=== PATIENT | male | born 1985 | race African-American/Black ===

== ENCOUNTER 2017-10-17 20:10 | Inpatient (IN) | payer OTHER ==
[~2017-10-17] VITALS: Ht 172.7 cm; Wt 99.8 kg
--- NOTE | ~2017-10-17 | EKG ---
[place] [address] [facility] [place] [address] ELECTROCARDIOGRAM REPORT Name: JUANKELLY J Room #: 204-P ADM IN M.R.#: [id number] Admission: 10/17/17 Attend Phys: Kelly Multani MD Discharge: Date of : 85 Report #: [id number] THIS REPORT FOR: //name// [facility] ED Test Date: 2017-10-17 Test Time: 20:40:48 Pat Name: KELLY MARTINEZ Department: Room: 204 Gender: M Diet Kitchen Cook: Justin TOLLIVER : 1985 Requested By: Singh Bustillo Order Number: [id number] MD: Hernán Harrington Measurements Intervals Minter Rate: 113 P: 66 MS: 152 QRS: 42 QRSD: 94 T: 42 QT: 360 QTc: 494 Interpretive Statements Sinus tachycardia Left atrial enlargement Prolonged QT interval Nonspecific ST segment abnormality No previous ECG available for comparison Electronically Signed On 10-18-2017 8:43:35 REALTIME REPORTER by Hernán Harrington [email or web address] <ELECTRONICALLY SIGNED> By: Hernán Harrington MD, [facility] 10/18/17 [phone] 39 Hernán Harrington MD, FACC /EPI
--- NOTE | ~2017-10-17 | 2DMMODE ---
[facility] [address] [place] [address] 2 D/M-MODE ECHOCARDIOGRAM Name: KELLY MARTINEZ Room #: 204-P [facility] IN ..#: [id number] Admission: 10/17/17 Attend Phys: Kelly Multani MD Discharge: Date of : 85 Date of Service: 10/18/17 1302 Report #: [id number] THIS REPORT FOR: //name// APPROVED REPORT Study performed: 10/18/2017 11:16:10 EXAM: Comprehensive 2D, Doppler, and color-flow Echocardiogram Patient Location: Bedside Room #: 204 Status: routine BSA: 2.13 HR: 110 bpm BP: 173/122 mmHg Other Information Study Quality: Good Indications Dyspnea Cardiomegaly Hypertension/HDD 2D Dimensions RVDd: 31.88 mm LVEF(%): 44.44 (>50%) IVSd: 10.34 (7-11mm) LVOT Diam: 23.95 (18-24mm) LVDd: 59.93 mm PWd: 9.75 (7-11mm) Ascending Ao: 28.05 (22-36mm) LVDs: 46.48 (25-40mm) Aortic Root: 31.17 mm IVC: 7.00 mm Jeffries's LVEF: 44.44 % Volumes Left Atrial Volume (Systole) Single Plane 4CH: 69.36 mL Single Plane 2CH: 56.75 mL LA ESV Index: 32.00 mL/m2 Aortic Valve AoV Peak Nando.: 1.83 m/s AO Peak Gr.: 13.45 mmHg LVOT Max P.77 mmHg LVOT Max V: 1.39 m/s KRYSTEN Vmax: 3.42 cm2 Pulmonary Valve PV Peak Nando.: 1.09 m/s PV Peak Gr.: 4.77 mmHg [facility] [place] [address] 2 D/M-MODE ECHOCARDIOGRAM Name: KELLY MARTINEZ Room #: 204-P [facility] IN .R.#: [id number] Admission: 10/17/17 Attend Phys: Kelly Multani MD Discharge: Date of : 85 Date of Service: 10/18/17 1302 Report #: [id number] Tricuspid Valve TR Peak Nando.: 3.48 m/s TR Peak Gr.: 48.37 mmHg PA Pressure: 53.00 mmHg Left Ventricle Left ventricle is dilated. There is normal left ventricular wall thickness. Left ventricular ejection fraction is at lower limits of normal. LVEF is 45-50%. This study is not technically sufficient to allow evaluation of the LV diastolic function. Right Ventricle The right ventricle is normal size. The right ventricular systolic function is normal. Atria The left atrium size is normal. The right atrium size is normal. Aortic Valve The aortic valve is normal in structure. No aortic regurgitation is present. There is no aortic valvular stenosis. Mitral Valve The mitral valve is normal in structure. Trace to mild mitral regurgitation. No evidence of mitral valve stenosis. Tricuspid Valve The tricuspid valve is normal in structure. There is trace to mild tricuspid regurgitation. Estimated PAP 53 mmHg. There is moderate pulmonary hypertension. Pulmonic Valve The pulmonary valve is normal in structure. Trace to mild pulmonic regurgitation. Great Vessels The aortic root is normal in size. IVC is normal in size and collapses >50% with inspiration. Pericardium There is no pericardial effusion. <Conclusion> Left ventricular ejection fraction is at lower limits of normal. [facility] [address] [place] [address] 2 D/M-MODE ECHOCARDIOGRAM Name: JUANKELLY J Room #: 204-P [facility] IN ..#: [id number] Admission: 10/17/17 Attend Phys: Kelly Multani MD Discharge: Date of : 85 Date of Service: 10/18/17 1302 Report #: [id number] LVEF 45-50%. Mild LV dilatation The aortic valve is normal in structure. No aortic regurgitation or stenosis The mitral valve is normal in structure. Trace to mild mitral regurgitation. There is trace to mild tricuspid regurgitation. Estimated pulmonary artery pressure of 53 mmHg. There is no pericardial effusion. <ELECTRONICALLY SIGNED> By: Hernán Harrington MD, [facility] 10/18/17 1302 01 01 Hernán Harrington MD, [facility] /INF
--- NOTE | ~2017-10-17 | O ---
[facility] [place] [address] OPERATIVE REPORT Name: KELLY MARTINEZ Room #: 204-P [facility] IN .R.#: [id number] Admission: 10/17/17 Attend Phys: Kelly Multani MD Discharge: Date of : 85 Report #: [id number] THIS REPORT FOR: //name// CC: Kelly Multani [facility] physician/PCP PRIMARY PHYSICIAN: None. CLINICAL HISTORY: A 32-year-old male with bilateral ground-glass opacities and mediastinal adenopathy and history of hemoptysis. A diagnostic bronchoscopy was performed. POSTOPERATIVE DIAGNOSES: 1. Mild purulent secretions seen in both airways. 2. No evidence of endobronchial lesion. DESCRIPTION OF PROCEDURE: Following obtaining consent and risks and benefits being explained to the patient, which include infection, bleeding, pneumothorax, the procedure performed in the endoscopy suite. The patient received aerosolized lidocaine at 4% to the upper airways. He also received 2% lidocaine to the supraglottic area. Approximately 20 mL were used. Then, 1% lidocaine was then used below the vocal cords. He also received total of 6 mg of Versed and total of 100 mcg of fentanyl for sedation. In addition, the patient received 20 mg of hydralazine IV push for hypertension along with Vasotec 1.25 mg IV push. His blood pressure prior to procedure was approximately 180/100 mmHg systolic. Following sedation and control of the hypertension, the flexible fiberoptic bronchoscope was then introduced to the right naris with some difficulty. The patient appeared quite apprehensive and sensitive in the naris. Thus, the patient received additional sedation as mentioned above. Then we were able to advance the bronchoscope to the supraglottic area. The epiglottis was normal, vocal cords normal, trachea was normal, kamlesh was normal. The right mainstem bronchus, right upper lobe, right middle lobe and right lower lobe were grossly unremarkable other than mild purulent secretions seen in both right and left mainstem bronchus. The left main stem bronchus, left upper lobe and left lower lobe were grossly unremarkable other than mild purulent secretion seen. Bronchoalveolar lavage was performed at the approximate left lower lobe. (CT chest revealed bilateral including bibasilar infiltrate, bibasilar ground glass opacities). We used approximately four aliquots of 20 mL normal saline with adequate return in the sputum collection cup. [address] [address] OPERATIVE REPORT Name: KELLY MARTINEZ Room #: 204-P [facility] IN M.R.#: [id number] Admission: 10/17/17 Attend Phys: Kelly Multani MD Discharge: Date of : 85 Report #: [id number] Due to coughing, gagging and some degree of apprehension, the procedure was aborted. The bronchial lavage specimen will be sent for microbiology studies including cell count and cytology. Otherwise, the patient tolerated the procedure fairly well except for hypertension. His blood pressure did go up to as high as 180/100 mmHg systolic. It improved to 160/80 mmHg following the procedure. Saturation was within the normal range. COMMENT: In the event that the patient may need another bronchoscopy, the patient may benefit from heavier sedation with Anesthesia standby. <ELECTRONICALLY SIGNED> By: Triston Levy MD 10/19/17 1747 1723 1744 Triston Levy MD /nt
--- NOTE | ~2017-10-17 | HC ---
[facility] [place] [address] CONSULTATION Name: KELLY MARTINEZ Room #: 204-P [facility] IN M.R.#: [id number] Admission: 10/17/17 Attend Phys: Kelly Multani MD Discharge: Date of : 85 Report #: [id number] THIS REPORT FOR: //name// CC: Kelly Multani [facility] physician/PCP PRIMARY PHYSICIAN: None. REFERRAL PHYSICIAN: Kelly Multani MD REASON FOR REFERRAL: Hemoptysis and abnormal CT chest. HISTORY OF PRESENT ILLNESS: The patient is a 32-year-old -[place] male who presents to emergency room with dyspnea and hemoptysis. A pulmonary consultation was requested. The patient has been generally healthy except for hypertension since 2005. He was in his usual state of health until about a week ago, he developed upper respiratory tract infection. He has had a mild cough. Last Wednesday, his dyspnea and cough worsened. He states that he coughed up pinkish colored sputum that tastes like blood. For that reason, he presented to the emergency room. Otherwise, he denies any febrile illness, night sweats or chills, nausea, vomiting, diarrhea, hematemesis, hematochezia, or melena. He does smoke about a pack a day for the last 16 years. He has never been diagnosed with chronic lung disease. He denies any illicit drug use. In August, he was hospitalized at [facility] for respiratory illness. It was on 08/23/2017. Chest x-ray was performed at that time suggesting "swollen airways," otherwise he does not recall any other abnormalities. 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 PAST SURGICAL HISTORY: None. ALLERGIES: None. HOME MEDICATIONS: Amlodipine. FAMILY HISTORY: Mother . She has had heart disease. Father had diabetes, hypertension, and hyperlipidemia. SOCIAL HISTORY: He is single, he has 4 children, he is never , he has a fifth child on the way. [facility] [address] [place] [address] CONSULTATION Name: JUANKELLY J Room #: 204-P ADM IN [facility].#: [id number] Admission: 10/17/17 Attend Phys: Kelly Multani MD Discharge: Date of : 85 Report #: [id number] REVIEW OF SYSTEMS: As mentioned above, otherwise 10-point system review negative. PHYSICAL EXAMINATION: VITAL SIGNS: Temperature maximum is 100 degrees Fahrenheit, pulse is 120, respiratory rate is 20, blood pressure 150/105 mmHg, and saturation 97%. GENERAL: He is awake, alert, in no apparent distress. HEENT: Normocephalic, atraumatic. NECK: Supple without lymphadenopathy or thyromegaly. CHEST: Breath sounds are good with few scattered crackles in the bases. No wheezes. CARDIOVASCULAR: Normal S1, S2. There no murmurs or gallop. There is no JVD. There is no carotid bruit. Pulses are 2+/4+ bilaterally. ABDOMEN: Soft, nontender, no organomegaly or masses felt. GENITOURINARY: Deferred. RECTAL: Deferred. EXTREMITIES: There is no edema, cyanosis, or clubbing. LABORATORY DATA: Chest x-ray and chest CT reviewed. Chest CT shows patchy bilateral eueq-pe-dfurkzga ground glass opacity, moderate subcarinal, right hilar adenopathy, increase in bilateral septal markings also noted. D-dimer was elevated. Influenza A and B screen is negative. CT chest angiogram also showed no evidence of pulmonary embolus. Urine drug screen was positive for opiates. EKG shows left atrial enlargement, otherwise no acute ischemic changes. Electrolytes are grossly unremarkable except for potassium 3.5, creatinine is normal. Liver enzymes are normal. WBC 14,100, hemoglobin is 15.0, platelets are normal. No bandemia. Arterial blood gas revealed pH 7.47, pCO2 of 24, pO2 61 on 3 liters of O2. IMPRESSION: 1. Acute hypoxic respiratory failure in this 32-year-old -[place]ian male. CT chest shows bilateral moderate ground glass opacity, mediastinal and hilar adenopathy. He has a long history of hypertension. The patient complains of hemoptysis. Etiology suspect viral process resulting pneumonia and mediastinal adenopathy. Hemoptysis is somewhat unusual unless it is concomitant, acute systolic heart failure given his . CT abnormality in this young -E[place]ian male should also suggest possible granulomatous disease such as sarcoidosis. 2. Ground glass opacity, mediastinal adenopathy as mentioned above. 3. Hypertension. 4. Tobacco abuse. Lung cancer is felt to be less likely given his age. RECOMMENDATION: We will await echocardiogram. We will proceed with diagnostic [address] [address] CONSULTATION Name: KELLY MARTINEZ Room #: 204-P [facility] IN M.R.#: [id number] Admission: 10/17/17 Attend Phys: Kelly Multani MD Discharge: Date of : 85 Report #: [id number] bronchoscopy. For now, I would proceed with bronchial lavage involving the right middle and right lower lobe with infiltrate appears to be more significant. EBUS will be deferred at this time until infection has been ruled out. The patient may ultimately need EBUS if mediastinal adenopathy persist. We will also defer transbronchial biopsy at this time as concerns for possible infection and heart failure. Procalcitonin level is also recommended. I have discussed above the findings with the patient and rationale for proceeding with diagnostic bronchoscopy in the morning. Risks and benefits were discussed, which include infection, bleeding, and pneumothorax. Following discussion, he voices understanding, we will then proceed. Thank you for this consultation. <ELECTRONICALLY SIGNED> By: Triston Levy MD 10/18/17 1409 1217 1303 Triston Levy MD /nt
--- NOTE | ~2017-10-17 | CNG ---
[facility] [place] [address] CYTO-NONGYN REPORT PROCEDURE Name: KELLY TAMAYO Room #: 204-P ADM IN M.R.#: [id number] Admission: 10/17/17 Date of : 85 Discharge: Report #: [id number] Path Case #: [id number] CYTOPATHOLOGY REPORT COLLECTION DATE: 10/19/2017 RECEIVED DATE: 10/19/2017 SUBMITTING PHYS: Kelly Multani M.D. OTHER PHYS: Dr. Carson Levy CLINICAL HISTORY: Pneumonia SPECIMEN(S) RECEIVED: A.Bronchoalveolar lavage, LLL * * * * * * * * * * * * FINAL DIAGNOSIS: A. Bronchoalveolar lavage, LLL: - No malignant epithelial cells identified. Numerous pigmented alveolar macrophages, scattered bronchial epithelial cells and occasional acute and chronic inflammatory cells identified. PATHOLOGIST: Muna Cagle M.D. REPORT ELECTRONICALLY SIGNED BY: Muna Cagle M.D. DATE/TIME: 10/20/2017 11:32 * * * * * * * * * * * * GROSS PATHOLOGY: A. Bronchoalveolar lavage, LLL: The specimen is submitted unfixed, labeled "Kelly Tamayo". Received by the Cytology Department is five mL of cloudy pink tinted fluid. One ThinPrep slide was prepared. (mm 10.19.2017) ELECTRONIC IMAGING SYSTEM OPERATOR(S): MYRNA Yoo([facility] INITIAL CPT CODE(S): A; 81131 Professional services performed by [facility] at [facility] [address], [place] [address] Technical services performed by [facility] at [address] [place] [address]., [address], [place] [address]. [facility] [address] [place] [address], [address] [facility] [address] [place] [address] CYTO-NONGYN REPORT PROCEDURE Name: KELLY TAMAYO Room #: 204-P ADM IN M.R.#: [id number] Admission: 10/17/17 Date of : 85 Discharge: Report #: [id number] Path Case #: [id number] [place] [place] [id number] PHONE: [phone] DIRECTOR: Eladio Kasper M.D. * * * END OF REPORT * * *
[2017-10-17 20:19] VITALS: BP 185/140
[2017-10-17 20:49] LABS: ABSOLUTE NEUTROPHILS 5.8 thou/uL (1.4-8.2); BASOPHILS 1.2 % (0.0-2.0); EOSINOPHILS 2.2 % (0.0-3.0); HEMOGLOBIN 13.9 gm/dL (14.0-18.0); MCH 30.3 pg (26.0-34.0); MCHC 34.8 g/dL (28.0-37.0); MCV 86.9 fL (80.0-100.0); MONOCYTES 8.3 % (1.0-8.0); PLATELET COUNT 328 thou/uL (150-400); POLYS 56.3 % (36.0-66.0); RDW 13.3 % (10.5-14.5); WBC 10.2 thou/uL (4.0-11.0)
[2017-10-17 20:58] LABS: ANION GAP 9 mmol/L (7-16); BUN 10 mg/dL (7-18); CALCIUM 9.1 mg/dL (8.5-10.1); CHLORIDE 106 mmol/L (98-107); CO2 24 mmol/L (21-32); GLUCOSE 108 mg/dL (74-106); POTASSIUM 3.6 mmol/L (3.5-5.1); SODIUM 139 mmol/L (136-145)
[2017-10-17 21:06] LABS: TROPONIN-I < 0.04 ng/mL (<0.06)
[2017-10-17 21:52] VITALS: BP 188/131
[2017-10-17 22:50] LABS: BE(vivo) -4.3 mmol/L (-2 to +3); HCO3 17.4 mmol/L (22.0-26.0); PCO2 24.5 mmHg (35.0-45.0); PO2 61.3 mmHg (80.0-100.0); sO2 93.4 % (92.0-98.0)
[2017-10-17 23:01] VITALS: BP 175/124
[2017-10-17 23:33] VITALS: BP 181/132
[2017-10-17] MEDS ORDERED: NORVASC2.5 MG PO (23:47)
[2017-10-18 00:17] LABS: URINE BILIRUBIN NEGATIVE (Negative); URINE BLOOD NEGATIVE (Negative); URINE CLARITY CLEAR; URINE COLOR YELLOW; URINE GLUCOSE-RANDOM* NEGATIVE (Negative); URINE KETONES NEGATIVE (Negative); URINE LEUKOCYTES NEGATIVE (Negative); URINE NITRITE NEGATIVE (Negative); URINE PROTEIN (DIPSTICK) NEGATIVE (Negative); URINE UROBILINOGEN 0.2 E.U./dl (0.2-1.0)
[2017-10-18 00:27] LABS: AMP/METHAMP Negative (Negative); BARBITURATES Negative (Negative); BENZODIAZEPINES Negative (Negative); COCAINE Negative (Negative); METHADONE Negative (Negative); OPIATES POSITIVE (Negative); PCP Negative (Negative)
[2017-10-18 03:07] LABS: HEMATOCRIT 43.9 % (42.0-52.0); MCH 29.7 pg (26.0-34.0); MCHC 34.2 g/dL (28.0-37.0); MCV 86.9 fL (80.0-100.0); RBC 5.05 mil/uL (4.50-6.00); RDW 13.5 % (10.5-14.5); WBC 14.1 thou/uL (4.0-11.0)
[2017-10-18 03:23] LABS: ALBUMIN 3.4 g/dL (3.4-5.0); CALCIUM 9.3 mg/dL (8.5-10.1); POTASSIUM 3.5 mmol/L (3.5-5.1); TOTAL BILIRUBIN 0.6 mg/dL (<0.1-1.0); TOTAL PROTEIN 8.6 g/dL (6.4-8.2)
[2017-10-18 04:17] VITALS: BP 189/134
[2017-10-18 07:35] VITALS: BP 173/122
[2017-10-18 11:08] VITALS: BP 153/105
[2017-10-18 11:59] LABS: APTT 29.2 Seconds (24.5-32.8); PROTIME 10.7 Seconds (9.3-11.4)
[2017-10-18 15:20] VITALS: BP 143/84
[2017-10-18 20:10] VITALS: BP 170/98
[2017-10-19 04:30] VITALS: BP 153/106
[2017-10-19 04:50] LABS: ABSOLUTE NEUTROPHILS 10.4 thou/uL (1.4-8.2); BASOPHILS 0.6 % (0.0-2.0); EOSINOPHILS 0.1 % (0.0-3.0); HEMATOCRIT 42.2 % (42.0-52.0); HEMOGLOBIN 14.4 gm/dL (14.0-18.0); LYMPHOCYTES 17.8 % (24.0-44.0); MCH 29.8 pg (26.0-34.0); MCHC 34.2 g/dL (28.0-37.0); MCV 87.2 fL (80.0-100.0); MONOCYTES 10.2 % (1.0-8.0); PLATELET COUNT 331 thou/uL (150-400); POLYS 71.3 % (36.0-66.0); RBC 4.85 mil/uL (4.50-6.00); RDW 13.7 % (10.5-14.5); WBC 14.6 thou/uL (4.0-11.0)
[2017-10-19 07:55] VITALS: BP 165/102
[2017-10-19 11:51] LABS: CLARITY CLOUDY; COLOR YELLOW; TOTAL VOLUME 7 mL
[2017-10-19 12:08] VITALS: BP 148/98
[2017-10-19 12:52] LABS: BF NUCLEATED CELLS 248; BF RBC 2111
[2017-10-19 13:07] LABS: BF MACROPHAGE 51; BF NEUTROPHILS 34
[2017-10-19 16:39] VITALS: BP 149/68
[2017-10-19 19:50] VITALS: BP 147/102
[2017-10-20 04:09] LABS: POTASSIUM 3.8 mmol/L (3.5-5.1)
[2017-10-20 04:45] VITALS: BP 157/111
[2017-10-20 09:14] VITALS: BP 158/107
[2017-10-20] MEDS ORDERED: AZITHROMYCIN 2250 MG PO (11:26)
[2017-10-20] MEDS ORDERED: CEFUROXIME500 MG PO (11:26)
[2017-10-20 11:56] VITALS: BP 158/107
== END 2017-10-20 12:15 | disposition home or self-care (01) | DRG 166 ==
LOC: ER 20:10 → EROBS 23:05 → 2N 23:05
PROVIDERS: Hospitalist; Internal Medicine Pulmonary Disease; Nurse Practitioner; Nurse Practitioner Family
PROC: 0B9J8ZX Drainage of Left Lower Lung Lobe, Via Natural or Artificial Opening Endoscopic, Diagnostic (ICD-10-PCS; principal; 2017-10-19)
DX: J18.9 Pneumonia, unspecified organism (principal); J96.01 Acute respiratory failure with hypoxia; R04.2 Hemoptysis; M54.9 Dorsalgia, unspecified; R59.0 Localized enlarged lymph nodes; E11.9 Type 2 diabetes mellitus without complications; I10 Essential (primary) hypertension; G89.29 Other chronic pain; F17.210 Nicotine dependence, cigarettes, uncomplicated; Z85.3 Personal history of malignant neoplasm of breast; Z82.49 Family history of ischemic heart disease and other diseases of the circulatory system; Z95.2 Presence of prosthetic heart valve; Z83.3 Family history of diabetes mellitus; Z83.49 Family history of other endocrine, nutritional and metabolic diseases; Z79.899 Other long term (current) drug therapy; Z28.21 Immunization not carried out because of patient refusal
CPT/HCPCS: 10081